=== PATIENT | female | born 1970 | race Caucasian/White ===

== ENCOUNTER 2016-06-27 07:34 | Emergency (ER) | payer BC, OTHER ==
[~2016-06-27] VITALS: Ht 165.1 cm; Wt 119.0 kg
[2016-06-27] MEDS ORDERED: KETOROLAC 60 MG/2 ML (TORADOL) VIAL IM ONE (08:00)
[2016-06-27 08:17] LABS: BASOPHILS % (AUTO) 0 % (0-2); EOSINOPHILS # (AUTO) 0.1 10^3uL; EOSINOPHILS % (AUTO) 1 % (0-4); LYMPHOCYTES # (AUTO) 2.1 X10^3; MEAN CORPUSCULAR HEMOGLOBIN 28.3 PG (26.0-34.0); MEAN CORPUSCULAR HGB CONC 35.1 g/dL (31.0-37.0); MEAN CORPUSCULAR VOLUME 81 FL (80-100); MONOCYTES # (AUTO) 0.6 X10^3; MONOCYTES % (AUTO) 8 % (3-11); NEUTROPHILS % (AUTO) 64 % (51-67); PLATELET COUNT 260 10^3uL (150-450); WHITE BLOOD COUNT 7.72 10^3uL (4.0-11.0)
[2016-06-27 08:31] LABS: ALBUMIN 3.7 g/dL (3.4-5.0); ANION GAP 11.5 MEQ/L (3-15); CALCULATED IONIZED CALCIUM 3.8 mg/dL (3.8-4.6); TOTAL PROTEIN 7.6 g/dL (6.4-8.5)
[2016-06-27 10:01] VITALS: BP 142/68
== END 2016-06-27 09:35 | disposition home or self-care (01) ==
LOC: ED 07:37
DX: G58.8 Other specified mononeuropathies (principal); M19.031 Primary osteoarthritis, right wrist; M25.531 Pain in right wrist; M79.641 Pain in right hand
CPT/HCPCS: 36415; 73110; 80053; 84550; 85025; 86140; 86431; 96372; 99283; J1885; L3908